=== PATIENT | male | born 1975 | race Caucasian/White ===

== ENCOUNTER 2017-10-04 01:26 | Observation (INO) | payer MEDICAID ==
[2017-10-04 01:26] VITALS: BMI 33.8
--- NOTE | 2017-10-04 02:38 | ED PDOC ---
HPI: Chest Pain Time Seen by Provider: 10/04/17 01:35 Chief Complaint (Nursing): Chest Pain Chief Complaint (Provider): Chest Pain History Per: Patient, Other (Friend) History/Exam Limitations: no limitations Onset/Duration Of Symptoms: Hrs Current Symptoms Are (Timing): Still Present Pain Scale Rating Of: 7 Quality: Tightness Additional Complaint(s): Demetris Lu is a 41 year old male with a past medical history of hypertension , hyperlipidemia, and diabetes who is presenting to the ED with complaints of chest pain onset yesterday. As per patients friend at bedside, patient came to visit friends father in [place] around 1 pm and showed signs of chest pain and shortness of breath. Friend advised him to visit the ER in [facility] and where they did an EKG and CT chest there (rule out pe). EKG as per previous reports showed Sinus tachycardia at [address] showed hilar adenopathy. In the ED there he was given Aspirin and signed out against medical advice of admission to be closer to family in [place]. Patient also complains of upper abdominal pain but denies any fevers or vomiting. He states that when breathing the pain is a 7 /10. He offers no other medical complaints at this time. Friend at Bedside: Navjot Ward Phone #: PMD: Dr. emily Lombardo [place] - Risk Factors TAD Risk Factors: Pos: Hypertension Past Medical History Reviewed: Historical Data, Nursing Documentation, Vital Signs Vital Signs: Last Vital Signs Temp 98 F 10/05/17 08:04 Pulse 96 H 10/05/17 09:00 Resp 18 10/05/17 08:04 BP 125/75 10/05/17 08:58 Pulse Ox 98 10/05/17 12:53 - Medical History PMH: HTN, Hypercholesterolemia, Hyperlipidemia Denies: Chronic Kidney Disease - Surgical History Surgical History: No Surg Hx - Family History Family History: States: CAD Other Family History: Father of a heart attack at 50 and mother had heart problems at the age of 55 - Social History Current smoker - smoking cessation education provided: Yes (quit 1-3 months ago) Alcohol: None Drugs: Denies - Immunization History Hx Tetanus Toxoid Vaccination: No Hx Influenza Vaccination: No Hx Pneumococcal Vaccination: No - Home Medications Home Medications: Ambulatory Orders Medication Instructions Recorded Alogliptin Benzoate [Alogliptin] 25 mg PO DAILY 10/04/17 Ergocalciferol (Vitamin D2) 50,000 unit PO QWK 10/04/17 [Vitamin D2] Lisinopril/Hydrochlorothiazide 1 each PO DAILY 10/04/17 [Lisinopril-Hctz 10-12.5 mg Tab] Metformin HCl [Fortamet] 1,000 mg PO BID 10/04/17 Simvastatin 10 mg PO DAILY 10/04/17 - Allergies Allergies/Adverse Reactions: Allergies Allergy/AdvReac Type Severity Reaction Status Date / Time No Known Allergies Allergy Verified 10/21/14 20:09 JENNIFFER Risk Score for UA/NSTEMI - JENNIFFER Risk Score Age > 64: NO 3 or more CAD Risk Factors: NO Known CAD (Stenosis greater than 50%): NO Aspirin use in past 7 days: NO Severe Angina: NO EKG ST changes greater than 0.5mm: NO Positive Cardiac Marker: NO JENNIFFER Score: 0 Risk %: 5% Wells Criteria for PE - Wells Criteria for Pulmonary Embolism Clinical Signs and Symptoms of DVT: No P.E is #1 Diagnosis, or Equally Likely: No Heart Rate >100: No Immobilization at least 3 days;Surgery previous 4 weeks: No Previous, objectively diagnosed PE or DVT: No Hemoptysis: No Malignancy w/treatment within 6 months, or palliative: No Total Score: 0 Review of Systems ROS Statement: Except As Marked, All Systems Reviewed And Found Negative Constitutional: Negative for: Fever Cardiovascular: Positive for: Chest Pain Respiratory: Positive for: Shortness of Breath Gastrointestinal: Positive for: Abdominal Pain. Negative for: Vomiting Physical Exam - Reviewed Nursing Documentation Reviewed: Yes Vital Signs Reviewed: Yes - Physical Exam Appears: Positive for: Non-toxic, No Acute Distress Head Exam: Positive for: ATRAUMATIC, NORMAL INSPECTION, NORMOCEPHALIC Skin: Positive for: Normal Color, Warm, DRY Eye Exam: Positive for: EOMI, Normal appearance, PERRL ENT: Positive for: Normal ENT Inspection Neck: Positive for: Normal, Painless ROM Cardiovascular/Chest: Positive for: Regular Rate, Rhythm. Negative for: Murmur Respiratory: Positive for: Normal Breath Sounds. Negative for: Respiratory Distress Gastrointestinal/Abdominal: Positive for: Normal Exam, Soft. Negative for: Tenderness Back: Positive for: Normal Inspection. Negative for: L CVA Tenderness, R CVA Tenderness, Vertebral Tenderness Extremity: Positive for: Normal ROM. Negative for: Pedal Edema, Deformity, Swelling Neurologic/Psych: Positive for: Alert, Oriented. Negative for: Motor/Sensory Deficits - Laboratory Results Result Diagrams: 10/04/17 02:50 10/04/17 02:50 - ECG O2 Sat by Pulse Oximetry: 98 (RA) Pulse Ox Interpretation: Normal Medical Decision Making Medical Decision Making: Time: 2:15 Plan: chest pain, rule out ACS, rule out pneumonia --CMP --Troponin --CBC --Chest X-Ray --Nitrostat Sl Tab 0.4 ml SL 4:04 pt got ASA earlier. cxr neg for infection Consult with Celia Briseno Dr. accepts patient for admission for chest pain. Scribe Attestation: Documented by Nikkie Reed, acting as a scribe for Dustin Doyle MD. Provider Scribe Attestation: All medical record entries made by the Scribe were at my direction and personally dictated by me. I have reviewed the chart and agree that the record accurately reflects my personal performance of the history, physical exam, medical decision making, and the department course for this patient. I have also personally directed, reviewed, and agree with the discharge instructions and disposition. Disposition - Clinical Impression Clinical Impression: Chest pain - Patient ED Disposition Is Patient to be Admitted: Yes Counseled Patient/Family Regarding: Studies Performed, Diagnosis - Disposition Disposition Time: 04:25 Condition: STABLE
[2017-10-04 03:01] LABS: BASO # 0.1 K/uL (0.0-0.2); EOS # 0.1 K/uL (0.0-0.7); EOS % 1.6 % (0.0-4.0); HEMOGLOBIN 12.8 g/dL (12.0-18.0); LYMPH # 1.9 K/uL (1.0-4.3); LYMPH % 25.4 % (20.0-40.0); MEAN CELL VOLUME 75.3 fl (80.0-94.0); MEAN CORPUSCULAR HEMOGLOBIN 24.4 pg (27.0-31.0); MEAN CORPUSCULAR HGB CONC 32.4 g/dL (33.0-37.0); MEAN PLATELET VOLUME 7.7 fl (7.2-11.7); MONO % 13.2 % (0.0-10.0); NEUT # 4.4 K/uL (1.8-7.0); NEUT % 58.8 % (50.0-75.0); RBC 5.25 Mil/uL (4.40-5.90); RED CELL DISTRIBUTION WIDTH 14.4 % (11.5-14.5); WHITE BLOOD COUNT 7.6 K/uL (4.8-10.8)
[2017-10-04 03:09] LABS: ALB/GLOB RATIO 1.2 (1.0-2.1); ALBUMIN 4.4 g/dL (3.5-5.0); ALT/SGPT 68 U/L (21-72); AST/SGOT 35 U/L (17-59); BLOOD UREA NITROGEN 11 mg/dl (9-20); CALCIUM 9.7 mg/dL (8.4-10.2); GFR AFRICAN-AMERICAN > 60; GFR NON-AFRICAN AMERICAN > 60
[2017-10-04] MEDS ORDERED: Oxycodone/Acetaminophen 5/325 mg Tab PO PRN (09:31)
[2017-10-04] MEDS: Pantoprazole 40 mg EC Tab PO SCH ×2 (10:05→17:21)
[2017-10-04] MEDS: Enoxaparin 40 mg Syringe SC SCH (10:08)
--- NOTE | 2017-10-04 10:24 | RAD ---
HISTORY: COMPARISON: None TECHNIQUE: Chest PA and lateral FINDINGS: LINES AND TUBES: None. LUNG AND PLEURA: The lungs are well inflated and clear. There is an azygous lobe fissure pain No pleural effusion or pneumothorax. HEART AND MEDIASTINUM: The heart is not enlarged. There is asymmetric enlargement of the right hilum. The mediastinal contours are within normal limits. SKELETAL STRUCTURES: The bony structures are within normal limits for the patient's age. VISUALIZED UPPER ABDOMEN: Normal. OTHER FINDINGS: None. IMPRESSION: No active pulmonary disease. Asymmetric enlargement of the right hilum could be related to enlarged pulmonary artery however hilar mass/adenopathy cannot be excluded. CT scan of the thorax with intravenous contrast is recommended for definitive evaluation.
--- NOTE | 2017-10-04 10:49 | CP.PCM.CON ---
History of Present Illness - History of Present Illness History of Present Illness: Demetris Lu is a 41 year old male with a past medical history of hypertension, hyperlipidemia, and diabetes who is presenting to the ED with complaints of chest pain onset Pt was seen at [facility] ER earlier yesterday all tests were normal Pain started 2 days ago it is Right sided and only present with deep inspiration EKG: NSR Troponin: neg Past Patient History - Infectious Disease Hx of Infectious Diseases: None - Tetanus Immunizations Tetanus Immunization: Unknown - Past Social History Alcohol: None Drugs: Denies - CARDIAC Hx Hypercholesterolemia: Yes Hx Hypertension: Yes - PULMONARY Hx Respiratory Disorders: No - NEUROLOGICAL Hx Neurological Disorder: No - HEENT Hx HEENT Problems: No - RENAL Hx Chronic Kidney Disease: No - ENDOCRINE/METABOLIC Hx Endocrine Disorders: Yes Hx Diabetes Mellitus Type 2: Yes - HEMATOLOGICAL/ONCOLOGICAL Hx Blood Disorders: No - INTEGUMENTARY Hx Dermatological Problems: No - MUSCULOSKELETAL/RHEUMATOLOGICAL Hx Musculoskeletal Disorders: No - GASTROINTESTINAL Hx Gastrointestinal Disorders: No - GENITOURINARY/GYNECOLOGICAL Hx Genitourinary Disorders: No - PSYCHIATRIC Hx Psychophysiologic Disorder: No Hx Substance Use: No - SURGICAL HISTORY Hx Surgeries: No - ANESTHESIA Hx Anesthesia: No Meds Allergies/Adverse Reactions: Allergies Allergy/AdvReac Type Severity Reaction Status Date / Time No Known Allergies Allergy Verified 10/21/14 20:09 - Medications Medications: Current Medications Aspirin (Aspirin Chewable) 81 mg PO DAILY [facility] Last Admin: 10/04/17 10:04 Dose: 81 mg Enoxaparin Sodium (Lovenox) 40 mg SC DAILY [facility] PRN Reason: Protocol Last Admin: 10/04/17 10:08 Dose: 40 mg Lisinopril (Zestril) 10 mg PO DAILY [facility] Last Admin: 10/04/17 10:05 Dose: 10 mg Oxycodone/Acetaminophen (Percocet 5/325 Mg Tab) 1 tab PO Q4 PRN PRN Reason: Pain, moderate (4-7) Stop: 10/07/17 09:32 Pantoprazole Sodium (Protonix Ec Tab) 40 mg PO BID [facility] Last Admin: 10/04/17 10:05 Dose: 40 mg Physical Exam - Constitutional Appears: Well - Head Exam Head Exam: NORMAL INSPECTION - Eye Exam Eye Exam: Normal appearance - ENT Exam ENT Exam: Normal Exam - Respiratory Exam Respiratory Exam: NORMAL BREATHING PATTERN - Cardiovascular Exam Cardiovascular Exam: REGULAR RHYTHM Results - Vital Signs Recent Vital Signs: Last Vital Signs Temp 98.8 F 10/04/17 08:12 Pulse 106 H 10/04/17 10:05 Resp 17 10/04/17 08:12 BP 106/66 10/04/17 10:05 Pulse Ox 98 10/04/17 08:12 - Labs Result Diagrams: 10/04/17 02:50 10/04/17 02:50 Labs: Laboratory Results - last 24 hr 10/04/17 10/04/17 02:50 02:50 WBC 7.6 RBC 5.25 Hgb 12.8 Hct 39.5 MCV 75.3 L MCH 24.4 L MCHC 32.4 L RDW 14.4 Plt Count 332 MPV 7.7 Neut % (Auto) 58.8 Lymph % (Auto) 25.4 [place] % (Auto) 13.2 H Eos % (Auto) 1.6 Baso % (Auto) 1.0 Neut # (Auto) 4.4 Lymph # (Auto) 1.9 [place] # (Auto) 1.0 H Eos # (Auto) 0.1 Baso # (Auto) 0.1 Sodium 139 Potassium 4.2 Chloride 100 Carbon Dioxide 24 Anion Gap 19 BUN 11 Creatinine 0.9 Est GFR ( Amer) > 60 Est GFR (Non-Af Amer) > 60 Random Glucose 179 H Calcium 9.7 Total Bilirubin 1.2 AST 35 ALT 68 Alkaline Phosphatase 126 Troponin I < 0.0120 Total Protein 8.0 Albumin 4.4 Globulin 3.7 Albumin/Globulin Ratio 1.2 Assessment & Plan (1) Pleuritic chest pain Assessment and Plan: pain appears to be pleuritic in nature Status: Acute
[2017-10-04 11:10] LABS: HDL CHOLESTEROL 26 MG/DL (30-70)
[2017-10-04 11:21] LABS: LDL CHOLESTEROL 92 mg/dL (0-129)
[2017-10-04] MEDS ORDERED: Oxycodone/Acetaminophen 5/325 mg Tab ONE (15:50)
[2017-10-04] MEDS ORDERED: Pantoprazole 40 mg EC Tab PO ONE (17:21)
--- NOTE | 2017-10-04 19:00 | CARD ---
APPROVED REPORT Date of service: 10/04/2017 EXAM: Two-dimensional and M-mode echocardiogram with Doppler and color Doppler. Other Information Quality : GoodRhythm : NSR INDICATION Chest Pain 2D DIMENSIONS IVSd1.45 (0.7-1.1cm)LVDd4.05 (3.9-5.9cm) LVOT Diameter1.97 (1.8-2.4cm)PWd1.11 (0.7-1.1cm) IVSs1.41 (0.8-1.2cm)LVDs2.73 (2.5-4.0cm) FS (%) 32.6 %PWs1.51 (0.8-1.2cm) M-Mode DIMENSIONS Left Atrium (MM)4.21 (2.5-4.0cm)IVSd1.38 (0.7-1.1cm) Aortic Root2.94 (2.2-3.7cm)LVDd4.88 (4.0-5.6cm) Aortic Cusp Exc.2.06 (1.5-2.0cm)PWd1.21 (0.7-1.1cm) IVSs1.47 cmFS (%) 39 % LVDs2.97 (2.0-3.8cm)PWs1.68 cm Aortic Valve AoV Peak Jkyskklf396.5cm/sAoV VTI16.3cmAO Peak GR.5mmHg LVOT Peak Lkreumdv270.6cm/sLVOT VTI15.87cmAO Mean GR.3mmHg CHRISTY (VMAX)1.92kw8MDB (VTI)1.36cm2 Mitral Valve MV E Xtbtrmvv61.7cm/sMV DECEL VVEL022naHV A Fgcuptlv87.4cm/s MV RIW84jiQ/A ratio1.5MVA (PHT)4.65cm2 TDI Lateral E' Peak V10.10cm/sMedial E' Peak V9.53cm/sE/Lateral E'6.3 E/Medial E'6.7 Pulmonary Valve PV Peak Oqrvmuoq207.7cm/s LEFT VENTRICLE The left ventricle is normal size. There is normal left ventricular wall thickness. The left ventricular function is normal. The left ventricular ejection fraction is within the normal range with EF 55-60%. No regional wall motion abnormalities noted. Transmitral Doppler flow pattern is Grade I-abnormal relaxation pattern. No left ventricle thrombus noted on this study. There is no ventricular septal defect visualized. There is no left ventricular aneurysm. There is no mass noted in the left ventricle. RIGHT VENTRICLE The right ventricle is normal size. There is normal right ventricular wall thickness. The right ventricular systolic function is normal. ATRIA The left atrium is mildly dilated. The right atrium size is normal. The interatrial septum is intact with no evidence for an atrial septal defect. AORTIC VALVE The aortic valve is normal in structure. No aortic regurgitation is present. There is no aortic valvular stenosis. There is no aortic valvular vegetation. MITRAL VALVE The mitral valve is normal in structure. There is no evidence of mitral valve prolapse. There is no mitral valve stenosis. There is no mitral valve regurgitation noted. TRICUSPID VALVE The tricuspid valve is normal in structure. There is trace tricuspid valve regurgitation noted. There is no tricuspid valve prolapse or vegetation. There is no tricuspid valve stenosis. PULMONIC VALVE The pulmonary valve is normal in structure. There is no pulmonic valvular regurgitation. There is no pulmonic valvular stenosis. GREAT VESSELS The aortic root is normal in size. The ascending aorta is normal in size. The pulmonary artery is normal. The IVC is normal in size and collapses >50% with inspiration. PERICARDIAL EFFUSION The pericardium appears normal. There is no pleural effusion. <Conclusion> The left ventricular ejection fraction is within the normal range with EF 55-60%. Transmitral Doppler flow pattern is Grade I-abnormal relaxation pattern. The left atrium is mildly dilated. There is trace tricuspid valve regurgitation noted.
--- NOTE | 2017-10-04 20:26 | HP ---
Copied To: Krunal Harris MD Attending MD: Krunal Harris MD HISTORY OF PRESENT ILLNESS: Mr. Lu is a 41-year-old male who was admitted via the emergency room with chest pain. He indicated that he had gone to a hospital in [place] because of the symptom and was signed out against medical advice. He was told that he had an abnormal CAT scan and a chest x-ray and has lymph node swelling but did not want to stay and signed out. PAST MEDICAL HISTORY: He has a past medical history of hypertension, hyperlipidemia, diabetes mellitus. FAMILY HISTORY: Noncontributory. SOCIAL HISTORY: He does not smoke or drink. REVIEW OF SYSTEMS: Essentially unremarkable. PHYSICAL EXAMINATION: GENERAL: The patient is alert, oriented, still has some chest discomfort which is reproducible in both midepigastric area and anterior chest wall. VITAL SIGNS: Blood pressure of 116/73, pulse of 98, respiratory rate is 18. He is afebrile. O2 sat 99% on room. SKIN: Shows fair turgor. HEENT: Pupils are equal and reactive to light and accommodation. MOUTH: Shows fair hygiene. NECK: JVP flat. LUNGS: Clear. HEART: Regular. No murmurs or gallop. There is chest wall tenderness. There is midepigastric tenderness. ABDOMEN: Benign. EXTREMITIES: Show no edema or cyanosis. CENTRAL NERVOUS SYSTEM: Grossly intact. LABORATORY DATA: Reviewed including EKG and a chest x-ray. Official report is pending. IMPRESSION: Chest pain, rule out acute coronary syndrome. Pain, however, appears to be musculoskeletal and abdominal. History of hypertension, history of hyperlipidemia, and diabetes. PLAN: Monitor patient in telemetry, analgesics for pain. Cardiac evaluation. If patient is clinically stable and coronary artery disease is ruled out, we will discharge in the a.m. and outpatient followup with primary care physician for evaluation of hilar adenopathy to rule out sarcoidosis or lymphoma. The patient understands, and he will follow up with his primary care doctor. Krunal Harris MD
[2017-10-05 00:10] VITALS: RESP 18; TEMP 98
[2017-10-05 08:05] VITALS: BP 125/75; O2SAT 98
[2017-10-05] MEDS ORDERED: Pneumococcal 23-Valent Vaccine IM ONE (08:51)
[2017-10-05] MEDS: Pantoprazole 40 mg EC Tab PO SCH (08:58)
[2017-10-05] MEDS: Enoxaparin 40 mg Syringe SC SCH (08:59)
--- NOTE | 2017-10-05 09:43 | CP.PCM.DIS ---
Provider - Provider Date of Admission: 10/04/17 04:03 Attending physician: Krunal Harris MD Time Spent in preparation of Discharge (in minutes): 35 Diagnosis - Discharge Diagnosis (1) Hilar adenopathy Status: Acute (2) Pleuritic chest pain Status: Acute Hospital Course - Lab Results Lab Results: Most Recent Lab Values WBC 7.6 K/uL (4.8-10.8) 10/04/17 02:50 RBC 5.25 Mil/uL (4.40-5.90) 10/04/17 02:50 Hgb 12.8 g/dL (12.0-18.0) 10/04/17 02:50 Hct 39.5 % (35.0-51.0) 10/04/17 02:50 MCV 75.3 fl (80.0-94.0) L 10/04/17 02:50 MCH 24.4 pg (27.0-31.0) L 10/04/17 02:50 MCHC 32.4 g/dL (33.0-37.0) L 10/04/17 02:50 RDW 14.4 % (11.5-14.5) 10/04/17 02:50 Plt Count 332 K/uL (130-400) 10/04/17 02:50 MPV 7.7 fl (7.2-11.7) 10/04/17 02:50 Neut % (Auto) 58.8 % (50.0-75.0) 10/04/17 02:50 Lymph % (Auto) 25.4 % (20.0-40.0) 10/04/17 02:50 [place] % (Auto) 13.2 % (0.0-10.0) H 10/04/17 02:50 Eos % (Auto) 1.6 % (0.0-4.0) 10/04/17 02:50 Baso % (Auto) 1.0 % (0.0-2.0) 10/04/17 02:50 Neut # (Auto) 4.4 K/uL (1.8-7.0) 10/04/17 02:50 Lymph # (Auto) 1.9 K/uL (1.0-4.3) 10/04/17 02:50 [place] # (Auto) 1.0 K/uL (0.0-0.8) H 10/04/17 02:50 Eos # (Auto) 0.1 K/uL (0.0-0.7) 10/04/17 02:50 Baso # (Auto) 0.1 K/uL (0.0-0.2) 10/04/17 02:50 Sodium 139 mmol/l (132-148) 10/04/17 02:50 Potassium 4.2 MMOL/L (3.6-5.0) 10/04/17 02:50 Chloride 100 mmol/L (98-107) 10/04/17 02:50 Carbon Dioxide 24 mmol/L (22-30) 10/04/17 02:50 Anion Gap 19 (10-20) 10/04/17 02:50 BUN 11 mg/dl (9-20) 10/04/17 02:50 Creatinine 0.9 mg/dl (0.8-1.5) 10/04/17 02:50 Est GFR ( Amer) > 60 10/04/17 02:50 Est GFR (Non-Af Amer) > 60 10/04/17 02:50 POC Glucose (mg/dL) 149 mg/dL (65-110) H 10/04/17 21:44 Random Glucose 179 mg/dL (75-110) H 10/04/17 02:50 Calcium 9.7 mg/dL (8.4-10.2) 10/04/17 02:50 Total Bilirubin 1.2 mg/dl (0.2-1.3) 10/04/17 02:50 AST 35 U/L (17-59) 10/04/17 02:50 ALT 68 U/L (21-72) 10/04/17 02:50 Alkaline Phosphatase 126 U/L (38-126) 10/04/17 02:50 Troponin I < 0.0120 ng/mL (0.00-0.120) 10/04/17 19:40 Total Protein 8.0 G/DL (6.3-8.2) 10/04/17 02:50 Albumin 4.4 g/dL (3.5-5.0) 10/04/17 02:50 Globulin 3.7 gm/dL (2.2-3.9) 10/04/17 02:50 Albumin/Globulin Ratio 1.2 (1.0-2.1) 10/04/17 02:50 Triglycerides 157 mg/DL (0-149) H 10/04/17 10:02 Cholesterol 144 mg/dL (0-199) 10/04/17 10:02 LDL Cholesterol Direct 92 mg/dL (0-129) 10/04/17 10:02 HDL Cholesterol 26 MG/DL (30-70) L 10/04/17 10:02 - Hospital Course Hospital Course: chest and abdominal pains improved ct scan of chest with contrast done in a [facility]--depicts hilar adenopathy--no evidence of vascular pathology Discharge Exam - Head Exam Head Exam: NORMAL INSPECTION - Eye Exam Eye Exam: EOMI, Normal appearance, PERRL Pupil Exam: NORMAL ACCOMODATION, PERRL - GI/Abdominal Exam GI & Abdominal Exam: Normal Bowel Sounds - Rectal Exam Rectal Exam: NORMAL INSPECTION - Neurological Exam Neurological exam: Alert, CN II-XII Intact, Normal Gait, Oriented x3, Reflexes Normal - Psychiatric Exam Psychiatric exam: Normal Affect, Normal Mood - Skin Skin Exam: Dry, Intact, Normal Color, Warm Discharge Plan - Follow Up Plan Condition: GOOD Disposition: HOME/ ROUTINE Patient education suggested?: Yes Additional Instructions: cardiac workup negative cleared for discharge by cardiology
[2017-10-05 10:28] VITALS: PULSE 96
== END 2017-10-05 11:00 | disposition home or self-care (01) ==
LOC: H.ER 01:26 → H.ERHOLD 04:03 → H.TEL 21:25
PROVIDERS: ADMIT Internal Medicine Pulmonary Disease; ATTEND Internal Medicine Pulmonary Disease
DX: R59.0 Localized enlarged lymph nodes (principal); R07.81 Pleurodynia; Z23 Encounter for immunization; I10 Essential (primary) hypertension; E78.5 Hyperlipidemia, unspecified; E11.9 Type 2 diabetes mellitus without complications; E78.00 Pure hypercholesterolemia, unspecified; Z87.891 Personal history of nicotine dependence
CPT/HCPCS: 71046; 80053; 80061; 82948; 84484; 85025; 90471; 90732; 93306; 96372; 99285; G0378; J1650